=== PATIENT | female | born 1975 | race Caucasian/White ===

== ENCOUNTER 2022-05-10 06:29 | Day surgery (SDC) | payer BC, OTHER ==
[2022-05-10] MEDS ORDERED: Sodium Chloride 0.9% 1,000 ML IV SCH (07:30)
[2022-05-10] MEDS ORDERED: Midazolam 1 MG/ML 2 ML SDV ONE (07:42)
[2022-05-10] MEDS ORDERED: Propofol 200 MG/20 ML SDV ONE (07:42)
[2022-05-10] MEDS ORDERED: fentaNYL 100 MCG/2 ML SDV ONE (07:42)
[2022-05-10 08:54] VITALS: BP 145/82; PULSE 59
== END 2022-05-10 09:14 | disposition home or self-care (01) ==
LOC: JP.SDS 06:29
PROVIDERS: ATTEND Surgery
DX: Z12.11 Encounter for screening for malignant neoplasm of colon (principal); D12.5 Benign neoplasm of sigmoid colon; E66.9 Obesity, unspecified; Z68.41 Body mass index [BMI] 40.0-44.9, adult; Z79.899 Other long term (current) drug therapy; Z88.8 Allergy status to other drugs, medicaments and biological substances
CPT/HCPCS: 81025; 88305; J2250; J2704; J3010; J7030